=== PATIENT | female | born 1975 | race African-American/Black ===

== ENCOUNTER 2019-07-31 17:16 | Emergency (ER) | payer OTHER ==
[~2019-07-31] VITALS: Ht 177.8 cm; Wt 142.9 kg
[~2019-07-31 17:16] MED LIST: AUGMENTIN 875875 MG PO; KEFLEX500 MG PO; NEXIUM40 MG PO; NORCO 5-325 TA1 EACH PO; NORVASC10 MG PO
[2019-07-31 18:16] LABS: ABSOLUTE NEUTROPHILS 3.2 thou/uL (1.4-8.2); BASOPHILS 0.7 % (0.0-2.0); EOSINOPHILS 3.9 % (0.0-3.0); HEMATOCRIT 44.4 % (37.0-47.0); HEMOGLOBIN 14.9 gm/dL (12.0-15.0); LYMPHOCYTES 47.5 % (24.0-44.0); MCH 31.4 pg (26.0-34.0); MCHC 33.5 g/dL (28.0-37.0); MCV 93.8 fL (80.0-100.0); MONOCYTES 10.4 % (1.0-8.0); PLATELET COUNT 259 thou/uL (150-400); POLYS 37.5 % (36.0-66.0); RBC 4.73 mil/uL (4.20-5.00); RDW 14.2 % (10.5-14.5); WBC 8.6 thou/uL (4.0-11.0)
[2019-07-31 18:27] LABS: ANION GAP 11 mmol/L (7-16); BUN 11 mg/dL (7-18); CHLORIDE 104 mmol/L (98-107); CO2 25 mmol/L (21-32); GLUCOSE 101 mg/dL (74-106); SODIUM 140 mmol/L (136-145)
[2019-07-31 18:28] LABS: POTASSIUM 4.2 mmol/L (3.5-5.1)
[2019-07-31 18:33] LABS: ALBUMIN 3.4 g/dL (3.4-5.0); DIRECT BILIRUBIN < 0.1 mg/dL (<0.1-0.2); LIPASE 71 U/L (73-393); SGOT 30 U/L (15-37); SGPT 43 U/L (30-65); TOTAL BILIRUBIN 0.5 mg/dL (<0.1-1.0); TOTAL PROTEIN 7.5 g/dL (6.4-8.2)
[2019-07-31 18:34] LABS: URINE BILIRUBIN NEGATIVE (Negative); URINE BLOOD NEGATIVE (Negative); URINE CLARITY CLEAR; URINE COLOR YELLOW; URINE GLUCOSE-RANDOM* NEGATIVE (Negative); URINE KETONES NEGATIVE (Negative); URINE LEUKOCYTES-REFLEX NEGATIVE (Negative); URINE NITRITE-REFLEX NEGATIVE (Negative); URINE PROTEIN (DIPSTICK) NEGATIVE (Negative); URINE SPECIFIC GRAVITY >= 1.030 (1.005-1.035); URINE UROBILINOGEN 0.2 E.U./dl (0.2-1.0)
[2019-07-31] MEDS ORDERED: MELOXICAM7.5 MG PO ×2 (19:55→20:14)
[2019-07-31 20:00] VITALS: BP 125/82
[2019-07-31] MEDS ORDERED: AMLODIPINE BESY10 MG PO (20:08)
[2019-07-31] MEDS ORDERED: COZAAR 50 MG TA50 M1 PO (20:08)
[2019-07-31] MEDS ORDERED: SPIRONOLACTONE50 MG PO (20:09)
== END 2019-07-31 20:19 | disposition home or self-care (01) ==
LOC: ER 17:16
PROVIDERS: Nurse Practitioner
DX: R07.81 Pleurodynia (principal); R26.89 Other abnormalities of gait and mobility; R11.0 Nausea; I10 Essential (primary) hypertension; K21.9 Gastro-esophageal reflux disease without esophagitis; Z88.8 Allergy status to other drugs, medicaments and biological substances; Z79.899 Other long term (current) drug therapy; Z91.012 Allergy to eggs